=== PATIENT | female | born 1950 | race Two or more races ===

== ENCOUNTER 2021-03-01 12:46 | Emergency (ER) | payer OTHER ==
[~2021-03-01] VITALS: Ht 162.6 cm; Wt 69.9 kg
[2021-03-01 15:42] VITALS: BP 149/65
== END 2021-03-01 15:59 | disposition home or self-care (01) ==
LOC: ER 12:46
DX: I10 Essential (primary) hypertension (principal); J02.9 Acute pharyngitis, unspecified; E11.9 Type 2 diabetes mellitus without complications

== ENCOUNTER 2022-02-16 16:28 | Inpatient (IN) | payer OTHER ==
[~2022-02-16] VITALS: Ht 157.5 cm; Wt 78.7 kg
[2022-02-16] MEDS ORDERED: ASPirin 81 mg TAB PO ONE (17:15)
[2022-02-16] MEDS ORDERED: LABETALOL HCL 5 MG/ML 4ML SYRINGE IV ONE (18:00)
[2022-02-16 18:25] LABS: Basophils # (auto) 0.1 10 ^3/uL (0-0.2); Basophils % (auto) 0.5 % (0.0-2.0); Eosinophils # (auto) 0.1 10 ^3/uL (0-0.8); Eosinophils % (auto) 0.8 % (0.0-7.0); Hematocrit 45.1 % (36.0-46.0); Hemoglobin 14.4 g/dL (12.2-16.2); Lymphocytes # (auto) 2.3 10 ^3/uL (0.4-5.4); Lymphocytes % (auto) 19.6 % (10.0-50.0); Mean Corpuscular Volume 84.3 fL (80.0-100.0); Monocytes # (auto) 1.1 10 ^3/uL (0-1.3); Monocytes % (auto) 9.3 % (0.0-12.0); Neutrophils # (auto) 8.1 10 ^3/uL (1.6-8.6); Neutrophils % (auto) 69.8 % (37.0-80.0); Nucleated Red Blood Cells % 0.1 %; Red Blood Cells 5.35 10^6/uL (4.0-5.20); Red Cell Distribution Width 13.5 % (11.8-14.3); White Blood Cell 11.6 10^3/uL (4.4-10.8)
[2022-02-16 18:40] LABS: Albumin 3.3 g/dL (3.4-5.0); Magnesium 2.2 mg/dL (1.6-2.6); Potassium 3.5 mmol/L (3.5-5.1)
[2022-02-16 18:45] LABS: BUN/Creatinine Ratio 25.5; Bilirubin, Total 0.7 mg/dL (0.2-1.0); Total Protein 7.1 g/dL (6.4-8.2)
[2022-02-16] MEDS ORDERED: ENOXAPARIN SOD 80 MG/0.8ML SYRINGE SC ONE (20:00)
[2022-02-16] MEDS ORDERED: ACETAMINOPHEN 325 MG TAB PO PRN (21:45)
[2022-02-16] MEDS ORDERED: hydrALAZINE HCL 20 MG/ML VL IV PRN (21:45)
[2022-02-16] MEDS ORDERED: HYDROcodone-ACET 5/325MG TAB PO PRN (21:45)
[2022-02-16] MEDS ORDERED: DOCUSATE SOD 100 MG CAP PO PRN (21:45)
[2022-02-16] MEDS ORDERED: ONDANSETRON HCL 4 MG/2 ML VIAL IV PRN (21:45)
[2022-02-16] MEDS ORDERED: DEXTROSE (50%) 50ML SYRG IV PRN (21:45)
[2022-02-16] MEDS ORDERED: InsuLIN REG 1unit/0.01ml Soln (100units/ml) SC SCH (22:00)
[2022-02-16] MEDS: SODIUM CHLORIDE 0.9% 1,000 ML IV SCH (23:47)
[2022-02-17] MEDS ORDERED: NITROGLYCERIN 0.4 MG SL TAB SL PRN
[2022-02-17] MEDS ORDERED: MORPHINE SULFATE INJ 2 MG/ml SYRG IV PRN
[2022-02-17] MEDS: ACCU-CHEK COMFORT CURVE STRIP VI SCH ×5 (00:36→21:59)
[2022-02-17] MEDS ORDERED: VENL75CA78 PO (03:35)
[2022-02-17] MEDS ORDERED: HYDR25TA87 PO (03:35)
[2022-02-17] MEDS ORDERED: CHLO25TA2 PO (03:35)
[2022-02-17 05:00] VITALS: BP 148/87
[2022-02-17 05:02] LABS: Basophils # (auto) 0.1 10 ^3/uL (0-0.2); Basophils % (auto) 0.8 % (0.0-2.0); Eosinophils # (auto) 0.2 10 ^3/uL (0-0.8); Eosinophils % (auto) 2.1 % (0.0-7.0); Hematocrit 38.8 % (36.0-46.0); Hemoglobin 13.3 g/dL (12.2-16.2); Lymphocytes # (auto) 2.4 10 ^3/uL (0.4-5.4); Lymphocytes % (auto) 31.8 % (10.0-50.0); Mean Corpuscular Hemoglobin 28.9 pg (28.0-32.0); Mean Corpuscular Hgb Conc. 34.3 g/dL (32.0-36.0); Mean Corpuscular Volume 84.2 fL (80.0-100.0); Monocytes # (auto) 0.7 10 ^3/uL (0-1.3); Monocytes % (auto) 8.9 % (0.0-12.0); Neutrophils # (auto) 4.3 10 ^3/uL (1.6-8.6); Neutrophils % (auto) 56.4 % (37.0-80.0); Nucleated Red Blood Cells % 0.1 %; Red Blood Cells 4.61 10^6/uL (4.0-5.20); Red Cell Distribution Width 13.3 % (11.8-14.3); White Blood Cell 7.6 10^3/uL (4.4-10.8)
[2022-02-17 05:17] LABS: Albumin 3.1 g/dL (3.4-5.0); Calcium 8.8 mg/dL (8.5-10.1); Potassium 3.7 mmol/L (3.5-5.1)
[2022-02-17 05:20] LABS: BUN/Creatinine Ratio 20.2; Bilirubin, Total 0.6 mg/dL (0.2-1.0); Total Protein 6.4 g/dL (6.4-8.2)
[2022-02-17] MEDS: InsuLIN REG 1unit/0.01ml Soln (100units/ml) SC SCH ×2 (08:09→12:01)
[2022-02-17 09:00] VITALS: BP 136/68
[2022-02-17] MEDS ORDERED: FAMOTIDINE (10MG/ML) 2ML VL IV SCH (10:00)
[2022-02-17] MEDS ORDERED: ENOXAPARIN SOD 40 MG/0.4 ML SYRINGE SC SCH (10:00)
[2022-02-17] MEDS ORDERED: METOPROLOL TARTRATE 25 MG TAB PO ONE (10:00)
[2022-02-17] MEDS: ASPirin 81 mg TAB PO SCH (10:09)
[2022-02-17 13:00] VITALS: BP 144/75
[2022-02-17] MEDS: SODIUM CHLORIDE 0.9% 1,000 ML IV SCH (14:25)
[2022-02-17 16:51] VITALS: BP 162/73
[2022-02-17 20:00] VITALS: BP 136/68
[2022-02-17] MEDS: METOPROLOL TARTRATE 25 MG TAB PO SCH (21:59)
[2022-02-17 22:00] VITALS: BP 171/66
[2022-02-17] MEDS ORDERED: POTASSIUM EFFERVESENT TAB 25 MEQ PO ONE (22:30)
[2022-02-18 05:00] VITALS: BP 176/63
[2022-02-18] MEDS: ACCU-CHEK COMFORT CURVE STRIP VI SCH ×5 (06:48→23:35)
[2022-02-18] MEDS: ASPirin 81 mg TAB PO SCH (09:45)
[2022-02-18] MEDS: METOPROLOL TARTRATE 25 MG TAB PO SCH ×2 (09:47→21:20)
[2022-02-18 13:00] VITALS: BP 166/71
[2022-02-18] MEDS ORDERED: INSU1INJ3 SC (13:22)
[2022-02-18] MEDS ORDERED: DEXTROSE (50%) 50ML SYRG IV PRN ×2 (14:00→23:15)
[2022-02-18 17:00] VITALS: BP 150/70
[2022-02-18] MEDS ORDERED: INSULIN 70/30 1unit/0.01ml Susp (100units/ml) SC SCH (17:30)
[2022-02-18] MEDS ORDERED: cloNIDine HCL 0.1 MG TAB PO PRN (18:15)
[2022-02-18] MEDS ORDERED: cloNIDine HCL 0.1 MG TAB PO ONE ×2 (18:15)
[2022-02-18] MEDS ORDERED: METOPROLOL TARTRATE 25 MG TAB PO ONE (18:15)
[2022-02-18 22:00] VITALS: BP 145/47
[2022-02-18] MEDS ORDERED: ACETAMINOPHEN 325 MG TAB PO ONE (23:15)
[2022-02-18] MEDS: InsuLIN REG 1unit/0.01ml Soln (100units/ml) SC SCH (23:36)
[2022-02-19 05:00] VITALS: BP 131/49
[2022-02-19] MEDS: ACCU-CHEK COMFORT CURVE STRIP VI SCH ×3 (06:12→12:23)
[2022-02-19] MEDS: InsuLIN REG 1unit/0.01ml Soln (100units/ml) SC SCH ×2 (06:42→12:23)
[2022-02-19] MEDS ORDERED: INSULIN 70/30 1unit/0.01ml Susp (100units/ml) SC SCH (08:00)
[2022-02-19 08:38] LABS: Basophils # (auto) 0.1 10 ^3/uL (0-0.2); Basophils % (auto) 1.1 % (0.0-2.0); Eosinophils # (auto) 0.2 10 ^3/uL (0-0.8); Hematocrit 39.4 % (36.0-46.0); Hemoglobin 13.3 g/dL (12.2-16.2); Lymphocytes # (auto) 1.8 10 ^3/uL (0.4-5.4); Lymphocytes % (auto) 31.9 % (10.0-50.0); Mean Corpuscular Hemoglobin 28.4 pg (28.0-32.0); Mean Corpuscular Hgb Conc. 33.8 g/dL (32.0-36.0); Mean Corpuscular Volume 83.9 fL (80.0-100.0); Monocytes # (auto) 0.5 10 ^3/uL (0-1.3); Monocytes % (auto) 9.4 % (0.0-12.0); Neutrophils # (auto) 3.1 10 ^3/uL (1.6-8.6); Neutrophils % (auto) 54.6 % (37.0-80.0); Nucleated Red Blood Cells % 0.2 %; Red Blood Cells 4.69 10^6/uL (4.0-5.20); Red Cell Distribution Width 13.3 % (11.8-14.3); White Blood Cell 5.6 10^3/uL (4.4-10.8)
[2022-02-19 08:53] LABS: Magnesium 2.3 mg/dL (1.6-2.6)
[2022-02-19 09:00] VITALS: BP 169/72
[2022-02-19] MEDS: ASPirin 81 mg TAB PO SCH (09:15)
[2022-02-19] MEDS: METOPROLOL TARTRATE 25 MG TAB PO SCH (09:17)
[2022-02-19] MEDS ORDERED: VALSARTAN 80 MG TAB PO SCH (10:00)
[2022-02-19 13:00] VITALS: BP 165/65
[2022-02-19] MEDS ORDERED: MET25T PO (13:06)
[2022-02-19] MEDS ORDERED: VALS1TAB57 PO (13:06)
[2022-02-19 13:49] VITALS: BP 169/72
== END 2022-02-19 15:12 | disposition home or self-care (01) | DRG 310 ==
LOC: ER 16:28 → EDBD 16:28 → TELE-WESTW 23:46
PROVIDERS: ADMIT Nurse Practitioner Family; ATTEND Internal Medicine
DX: I49.3 Ventricular premature depolarization (principal); E11.65 Type 2 diabetes mellitus with hyperglycemia; F41.9 Anxiety disorder, unspecified; I10 Essential (primary) hypertension; Z20.822 Contact with and (suspected) exposure to COVID-19; Z79.4 Long term (current) use of insulin
CPT/HCPCS: 36415; 71045; 80048; 80053; 82962; 83036; 83735; 83880; 84484; 85025; 85379; 93005; 93306; 96372; 96374; 96375; 99291; G0378; J1815; J3490

== ENCOUNTER 2022-03-02 19:24 | Emergency (ER) | payer OTHER ==
[~2022-03-02] VITALS: Ht 162.6 cm; Wt 73.2 kg
[~2022-03-02 19:24] MED LIST: CHLO25TA2 PO; HYDR25TA87 PO; INSU1INJ3 SC; MET25T PO; VALS1TAB57 PO; VENL75CA78 PO
[2022-03-02 19:58] VITALS: BP 190/77
== END 2022-03-03 00:33 | disposition left against medical advice (07) ==
LOC: ER 19:24
DX: I10 Essential (primary) hypertension (principal); Z53.21 Procedure and treatment not carried out due to patient leaving prior to being seen by health care provider
CPT/HCPCS: 93005